=== PATIENT | male | born 1995 | race Caucasian/White ===

== ENCOUNTER 2016-12-24 08:08 | Emergency (ER) | payer OTHER ==
--- NOTE | 2016-12-24 10:27 | ED Physician Documentation ---
History of Present Illness - Stated complaint Stated Complaint: FINGER LAC - Chief complaint Chief Complaint: Wound - Additonal information Additional information: hx from pt R third fingertip amputation on mandelin at work healthy tdap UTD Review of Systems Skin: reports: Other (fingertip amp) PD PAST MEDICAL HISTORY - Past Medical History Past Medical History: Yes - Present Medications Home Medications: Ambulatory Orders Medication Instructions Recorded Confirmed Escitalopram [Lexapro] 10 mg PO DAILY 12/24/16 12/24/16 - Allergies Allergies/Adverse Reactions: Allergies Allergy/AdvReac Type Severity Reaction Status Date / Time No Known Drug Allergies Allergy Verified 12/24/16 08:17 - Social History Does the pt smoke?: No Smoking Status: Never smoker - Immunizations Immunizations are current?: Yes PD ED PE NORMAL - Vitals Vital signs reviewed: Yes - Extremities Extremities: Other (R third finger small 1< [address] complete avulsion, no nail or bone involves, MSV intact) Results - Vitals Vitals: Vital Signs - 24 hr 12/24/16 08:17 Temperature 36.4 C L Heart Rate 78 Respiratory 16 Rate Blood Pressure 116/76 O2 Saturation 99 Oxygen O2 Source Room air Departure - Departure Disposition: 01 Home, Self Care Clinical Impression: Fingertip amputation Qualifiers: Encounter type: initial encounter Qualified Code(s): S68.129A - Partial traumatic metacarpophalangeal amputation of unspecified finger, initial encounter Condition: Good Instructions: ED Laceration Amputation Finger Tip Open Tx Comments: Leave the dressing we placed on for 48 hr. Then may gently remove (recommend soaking in water first to prevent sticking) After that should be able to gently wash, apply antibiotic ointment and a clean fingertip bandaid once daily. This will take about 2 weeks to heal. This was a clean cut and so infection is unlikely but if you notice increasing redness swelling or pain, please come back for a wound check
[2016-12-24 11:42] VITALS: BP 114/79
== END 2016-12-24 11:51 | disposition home or self-care (01) ==
LOC: ED 08:08
DX: S68.122A Partial traumatic metacarpophalangeal amputation of right middle finger, initial encounter (principal); W26.0XXA Contact with knife, initial encounter; Y99.0 Civilian activity done for income or pay
CPT/HCPCS: 1040M; 99283

== ENCOUNTER 2018-01-10 15:15 | Emergency (ER) | payer OTHER ==
[2018-01-10] MEDS ORDERED: HYDROcod/ACETAM 5/325 MG TABLET PO STA (16:21)
[2018-01-10] MEDS ORDERED: CYCLOBENZAPRINE 10 MG TABLET PO STA (16:21)
--- NOTE | 2018-01-10 16:24 | ED Physician Documentation ---
PD HPI BACK INJURY - Stated complaint Stated Complaint: BACK/LEG PX - History obtained from History obtained from: Patient - History of Present Illness Location: Upper (Since yesterday without specific trauma he has had upper back pain that is worse with twisting or bending. It radiates throughout the chest and down to the lower back. It makes him short of breath. Denies pedal edema or calf pain or recent travel. No fevers. No urinary complaints or hematuria. He had a similar episode for a few days in April that resolved without specific intervention.) Review of Systems Constitutional: reports: Reviewed and negative Cardiac: reports: Reviewed and negative Respiratory: reports: Reviewed and negative PD PAST MEDICAL HISTORY - Past Medical History Past Medical History: No Cardiovascular: None Respiratory: None Neuro: None Endocrine/Autoimmune: None GI: None : None HEENT: None Psych: None Musculoskeletal: None Derm: None - Past Surgical History Past Surgical History: No - Present Medications Home Medications: Ambulatory Orders Medication Instructions Recorded Confirmed Cyclobenzaprine [Flexeril] 10 mg PO TID PRN #20 tablet 01/10/18 Hydrocodone/Acetaminophen 1 - 2 each PO Q6H PRN #14 tablet 01/10/18 [Hydrocodon-Acetaminophen 5-325] - Allergies Allergies/Adverse Reactions: Allergies Allergy/AdvReac Type Severity Reaction Status Date / Time No Known Drug Allergies Allergy Verified 01/10/18 15:37 - Social History Does the pt smoke?: No Smoking Status: Never smoker Does the pt drink ETOH?: No Does the pt have substance abuse?: No - Immunizations Immunizations are current?: Yes - POLST Patient has POLST: No PD ED PE NORMAL - Vitals Vital signs reviewed: Yes - General General: Alert and oriented X 3, No acute distress - Cardiac Cardiac: RRR, No murmur - Respiratory Respiratory: No respiratory distress, Clear bilaterally - Abdomen Abdomen: Non tender - Back Back: Other (Kind of diffuse muscular tenderness of the bilateral parathoracic muscles and he is hypersensitive over the whole back. No specific tenderness.) - Extremities Extremities: Other (The patient has equal and normal Achilles and patellar reflexes bilaterally. Normal sensation in all areas of the legs. Patient denies saddle anesthesia. Normal strength in flexion-extension at the ankles, knees, and flexion of the hips.) - Neuro Neuro: Alert and oriented X 3, Normal speech Results - Vitals Vitals: Vital Signs - 24 hr 01/10/18 01/10/18 15:34 17:21 Temperature 36.5 C Heart Rate 97 80 Respiratory 16 Rate Blood Pressure 122/73 121/78 O2 Saturation 100 100 Oxygen O2 Source Room air - Labs Labs: Laboratory Tests 01/10/18 16:50 Urine Color STRAW Urine Clarity CLEAR Urine pH 7.0 Ur Specific [place] 1.010 Urine Protein NEGATIVE Urine Glucose (UA) NEGATIVE Urine Ketones NEGATIVE Urine Occult Blood NEGATIVE Urine Nitrite NEGATIVE Urine Bilirubin NEGATIVE Urine Urobilinogen 0.2 (NORMAL) Ur Leukocyte Esterase NEGATIVE Ur Microscopic Review NOT INDICATED Urine Culture Comments NOT INDICATED - Rads (name of study) 2v chest Radiology: EMP read contemporaneously (normal) PD MEDICAL DECISION MAKING - ED course ED course: 22-year-old gentleman with seemingly musculoskeletal upper back pain with tenderness and motion related complaints. But some atypical complaints So we obtained a urinalysis to rule out hematuria/kidney stone. Also a chest x-ray given radiation to the chest, these were negative and he was feeling better after meds. Departure - Departure Disposition: 01 Home, Self Care Clinical Impression: Back pain Condition: Good Record reviewed to determine appropriate education?: Yes Instructions: ED Neck Back Pain General Prescriptions: Cyclobenzaprine [Flexeril] 10 mg PO TID PRN #20 tablet PRN Reason: Spasms Hydrocodone/Acetaminophen [Hydrocodon-Acetaminophen 5-325] 1 - 2 each PO Q6H PRN #14 tablet PRN Reason: pain Comments: Call your doctor to arrange a follow-up appointment, make the next available appointment. In the interim, return anytime if worse or if new symptoms develop. Do not drink or drive while taking narcotic pain medication. Note that many narcotic pain relievers also contain Tylenol/acetaminophen. Please ensure that your total dose of acetaminophen from all sources does not exceed 3 g (3000 mg) per day. You may get constipated while on this medication. Take a stool softener such as Colace twice a day while you are on it. Also add an [id number] laxative such as senna or MiraLAX on any day that you do not have a bowel movement. If you received a narcotic pain medication or sedative while in the emergency department, do not drive for the next 24 hours. Forms: Activity restrictions Discharge Date/Time: 01/10/18 17:26
--- NOTE | 2018-01-10 16:54 | XRAY Report ---
Reason: back pain Procedure Date: 01/10/2018 Accession Number: [id number] / [id number] Procedure: XR - Chest 2 View X-Ray CPT Code: 15515 FULL RESULT: EXAM: CHEST RADIOGRAPHY EXAM DATE: 01/10/2018 04:36 PM. CLINICAL HISTORY: Back pain. COMPARISON: None available. TECHNIQUE: 2 views. FINDINGS: Heart size is normal. Mild asymmetric elevation of the left hemidiaphragm, which is nonspecific. No consolidation, pleural effusion, or pneumothorax. IMPRESSION: No acute cardiopulmonary findings. RADIA
[2018-01-10 17:01] LABS: BILIRUBIN,URINE NEGATIVE (NEGATIVE); GLUCOSE, URINE (UA) NEGATIVE (NEGATIVE); KETONES,URINE (UA) NEGATIVE (NEGATIVE); LEUKOCYTE ESTERASE, URINE NEGATIVE (NEGATIVE); NITRITE,URINE NEGATIVE (NEGATIVE); OCCULT BLOOD,URINE NEGATIVE (NEGATIVE); PROTEIN,URINE NEGATIVE (NEGATIVE); UROBILINOGEN,URINE 0.2 (NORMAL) E.U./dL (NORMAL)
[2018-01-10 17:03] LABS: CLARITY,URINE CLEAR (CLEAR)
[2018-01-10 17:25] VITALS: BP 121/78
== END 2018-01-10 17:26 | disposition home or self-care (01) ==
LOC: ED 15:15
DX: M54.6 Pain in thoracic spine (principal)
CPT/HCPCS: 71046; 81003; 99283; A9270; 81001; 87086

== ENCOUNTER 2018-05-15 11:39 | Emergency (ER) | payer OTHER ==
[2018-05-15] MEDS ORDERED: LIDOCAINE PATCH 5% TOP STA (12:36)
--- NOTE | 2018-05-15 12:50 | ED Physician Documentation ---
PD HPI CHEST PAIN - Stated complaint Stated Complaint: DIFFICULTY BREATHING/UPPER ABD PX - Chief complaint Chief Complaint: Resp - History obtained from History obtained from: Patient - History of Present Illness Timing - onset: How many hours ago (3 days) Timing - onset during: Other (all the time) Timing - duration: Other (constant) Timing - details: Gradual onset Pain level max: 4 Pain level now: 4 Severity Comments: mild Quality: Sharp Location: Right chest Radiation: Other (none) Improved by: Other (none) PD PAST MEDICAL HISTORY - Past Medical History Past Medical History: No Cardiovascular: None Respiratory: None Neuro: None Endocrine/Autoimmune: None GI: None : None HEENT: None Psych: None Musculoskeletal: None Derm: None - Past Surgical History Past Surgical History: No - Present Medications Home Medications: Ambulatory Orders Medication Instructions Recorded Confirmed Cyclobenzaprine [Flexeril] 10 mg PO TID PRN #20 tablet 01/10/18 Hydrocodone/Acetaminophen 1 - 2 each PO Q6H PRN #14 tablet 01/10/18 [Hydrocodon-Acetaminophen 5-325] Acetaminophen [Tylenol Extra 1,000 mg PO TID #60 tablet 05/15/18 Strength] Ibuprofen [Ibu] 800 mg PO TID #60 tablet 05/15/18 - Allergies Allergies/Adverse Reactions: Allergies Allergy/AdvReac Type Severity Reaction Status Date / Time No Known Drug Allergies Allergy Verified 05/15/18 11:53 - Social History Does the pt smoke?: No Smoking Status: Never smoker Does the pt drink ETOH?: No Does the pt have substance abuse?: No - Immunizations Immunizations are current?: Yes - POLST Patient has POLST: No Results - Vitals Vitals: Vital Signs - 24 hr 05/15/18 11:51 Temperature 36.8 C Heart Rate 82 Respiratory 22 Rate Blood Pressure 122/85 H O2 Saturation 98 Oxygen O2 Source Room air - EKG (time done) 1252 Rate: Rate (enter#) (77) Rhythm: NSR [place]: Normal Intervals: Normal LA, QRS normal. No: Prolonged QT Ischemia: Normal ST segments. No: T wave inversion Computer interpretation: Disagree with computer - Rads (name of study) Chest Radiology: Final report received (1. No pneumothorax. 2. Background of increased interstitial markings and overall increased density. ) PD MEDICAL DECISION MAKING - ED course Complexity details: considered differential, d/w patient ED course: 23-year-old male with right lower rib pain worse with inspiration.Unremarkable chest x-ray and EKG.Start with symptomatic treatment and primary care follow-up. Patient is PERC negative with very low suspicion at this time for pulmonary embolism. No evidence on x-ray of dissection. Patient is extremely low risk for ACS. Departure - Departure Disposition: 01 Home, Self Care Clinical Impression: Chest wall pain Condition: Good Instructions: ED Chest Pain Costochondritis Follow-Up: GAGE CHAUHAN [Primary Care Provider] - Prescriptions: Acetaminophen [Tylenol Extra Strength] 1,000 mg PO TID #60 tablet Ibuprofen [Ibu] 800 mg PO TID #60 tablet Comments: Take Tylenol and ibuprofen as needed according to prescription for chest wall pain. Follow-up with PCP within 24 hours. Return with worsening symptoms.
--- NOTE | 2018-05-15 13:18 | XRAY Report ---
Reason: chest pain Procedure Date: 05/15/2018 Accession Number: [id number] / [id number] Procedure: XR - Chest 1 View X-Ray CPT Code: 81304 FULL RESULT: EXAM: CHEST RADIOGRAPHY EXAM DATE: 05/15/2018 12:40 PM. CLINICAL HISTORY: Chest pain. COMPARISON: Chest 2 view 01/10/2018 4:25 PM. TECHNIQUE: 1 view. FINDINGS: Lungs/Pleura: There is a background of mild increased interstitial markings and overall increased density in the lungs compared to previous study. Relatively low lung volumes, however. No pneumothorax. Mediastinum: Within exam limitations, the cardiomediastinal contour is normal. Other: None. IMPRESSION: 1. No pneumothorax. 2. Background of increased interstitial markings and overall increased density compared to previous exam. Relatively low lung volumes. RADIA
[2018-05-15 13:38] VITALS: BP 123/70
== END 2018-05-15 13:37 | disposition home or self-care (01) ==
LOC: ED 11:39
DX: R07.89 Other chest pain (principal); M54.2 Cervicalgia
CPT/HCPCS: 71045; 93005; 99283; A9270